=== PATIENT | female | born 1990 | race Caucasian/White ===

== ENCOUNTER → 2020-12-08 10:08 | Outpatient (BNVA) | payer MEDICAID, SELFPAY | PROVIDERS: Visit Provider Advanced Practice Midwife | DX: N92.6 Irregular menstruation, unspecified (principal); E66.01 Morbid (severe) obesity due to excess calories; Z68.42 Body mass index [BMI] 45.0-49.9, adult | CPT/HCPCS: 81025; 99202 ==

== ENCOUNTER 2020-12-08 13:09 | Outpatient (REF) | payer MEDICAID, SELFPAY ==
--- NOTE | 2020-12-08 | US_ITS ---
EXAMINATION: OBSTETRICAL ULTRASOUND, FIRST TRIMESTER HISTORY: 31-year-old with secondary amenorrhea LMP: Unknown COMPARISON: None TECHNIQUE: Real time transabdominal imaging with color and M-mode Doppler. FINDINGS: A single, live IUP CRL of 19.3 mm c/w 8.4wks is noted. Heart Rate: 169 beats per minute. Right ovary contains the an anechoic cyst measuring 3.6 x 2.8 x 3.3 cm. The ovary measured 5.3 x 4.2 4.2 cm. Left ovary 3.3 x 3.1 x 2.8 cm. GESTATIONAL AGE: 1. GA from LMP: N/A wks 2. GA from AUA: 8.4 wks ESTIMATED DATE OF DELIVERY: 1. FINA from LMP: N/A 2. FINA from AUA: 07/16/2021 US/US OB <= 14 weeks fetus IMPRESSION: 1. A single live IUP 2. CRL corresponds to 8.4 weeks of gestation giving her an FINA of 07/16/2021 3. Bilateral normal ovaries Thank you very much for this referral.
== END 2020-12-08 13:10 | disposition home or self-care (01) ==
LOC: HO.US 13:09
PROVIDERS: Visit Provider Advanced Practice Midwife
DX: O26.891 Other specified pregnancy related conditions, first trimester (principal); N92.6 Irregular menstruation, unspecified; R10.2 Pelvic and perineal pain; Z3A.08 8 weeks gestation of pregnancy
CPT/HCPCS: 76801

== ENCOUNTER → 2020-12-22 10:12 | Outpatient (BNVA) | payer MEDICAID, SELFPAY | PROVIDERS: Visit Provider Advanced Practice Midwife ==

== ENCOUNTER → 2021-01-04 10:45 | Outpatient (BNVA) | payer MEDICAID, SELFPAY | PROVIDERS: Visit Provider Advanced Practice Midwife | CPT/HCPCS: 99212 ==

== ENCOUNTER 2021-01-09 10:35 | Outpatient (REF) | payer MEDICAID, SELFPAY ==
[2021-01-10 09:20] LABS: BV Int Neg Control Negative (Negative); BV Int Pos Control Positive (Positive)
[2021-01-10 14:52] LABS: C. trachomatis RNA TMA NOT DETECTED (NOT DETECTED); N. gonorrhoeae RNA TMA NOT DETECTED (NOT DETECTED)
== END 2021-01-09 10:36 | disposition home or self-care (01) ==
LOC: HO.LAB 10:35
PROVIDERS: Visit Provider Advanced Practice Midwife
DX: O99.210 Obesity complicating pregnancy, unspecified trimester (principal); E66.01 Morbid (severe) obesity due to excess calories; Z20.2 Contact with and (suspected) exposure to infections with a predominantly sexual mode of transmission; Z68.42 Body mass index [BMI] 45.0-49.9, adult; Z12.4 Encounter for screening for malignant neoplasm of cervix
CPT/HCPCS: 36415; 81003; 87480; 87491; 87510; 87591; 87660; 88142; 99212

== ENCOUNTER 2021-01-12 12:35 | Outpatient (REF) | payer MEDICAID, SELFPAY ==
[2021-01-09 14:00] LABS: MANUAL DIFF FLAG NO
[2021-01-09 14:06] LABS: Basophils Percent Auto 0.5 % (0-2); Eosinophils Absolute Auto 0.2 X10*3/uL (0.0-0.4); Eosinophils Percent Auto 2.5 % (0-4); Hematocrit 32.3 % (37-47); Hemoglobin 10.7 g/dl (12.0-16.0); Imm Gran Abs Auto 0.02 X10*3/uL (0.00-0.03); Imm Gran Pct Auto 0.3 % (0.0-0.4); Lymphocytes Absolute Auto 1.4 X10*3/uL (1.2-4.9); Lymphocytes Percent Auto 18.2 % (20-40); Mean Corpuscular HGB Conc 33.1 g/dl (31.0-35.0); Mean Corpuscular Hemoglobin 26.4 pg (27.0-33.0); Mean Corpuscular Volume 79.8 fL (80-98); Monocytes Absolute Auto 0.3 X10*3/uL (0.1-1.2); Monocytes Percent Auto 4.4 % (2-11); Neutrophils Absolute Auto 5.7 X10*3/uL (2.0-8.3); Neutrophils Percent Auto 74.1 % (45-73); Platelet Count 224 X10*3/uL (160-400); Red Blood Count 4.05 X10*6/uL (4.20-5.50); Red Cell Distribution Width 15.1 % (11.0-16.0); White Blood Count 7.7 X10*3/uL (4.8-10.8)
[2021-01-09 14:32] LABS: Glucose 1 Hour 184 mg/dL
[2021-01-09 14:48] LABS: Amphetamine Screen Urine Not Detected (Not Detect); Barbiturates, Urine Not Detected (Not Detect); Benzodiazepines Screen Urine Not Detected (Not Detect); Cannabinoid Screen Urine Not Detected (Not Detect); Cocaine Screen Urine Not Detected (Not Detect); Opiate Screen Urine Not Detected (Not Detect); Phencyclidine Screen Urine Not Detected (Not Detect)
[2021-01-10 05:43] LABS: Rubella IgG Antibody <0.90 Index
[2021-01-10 07:42] LABS: Syphilis Screen Nonreactive (Nonreactive)
[2021-01-10 08:17] LABS: HIV AB/AG Nonreactive (Nonreactive); HIV Num 1 0.12 S/CO (0.00-0.99); ~HepC Num1 0.03 S/CO (0.00-0.79); ~Hepatitis C Antibody Nonreactive (Nonreactive)
[2021-01-10 08:43] LABS: HBsAGNum1 0.14 S/CO (0.00-0.99); Hepatitis B Surface Antigen Negative (Negative)
--- NOTE | ~2021-01-12 | US_ITS ---
EXAMINATION: OBSTETRICAL ULTRASOUND, FIRST TRIMESTER HISTORY: 30-year-old at 13.4 weeks of gestation High BMI NT screening COMPARISON: 12/08/2020 TECHNIQUE: Real time transabdominal imaging with color and M-mode Doppler. FINDINGS: A single, live IUP CRL of 79.3 mm c/w 14.0wks is noted. Heart Rate: 158 beats per minute. Normal yolk sac seen. NT was 1.4.mm. NB Present The embryo appears sonographically wnl for this GA. Right ovary is within normal limits. There is an anechoic cyst. Left ovary was not seen. There is a small subchorionic bleed measuring 3.6 x 0.9 x 2.4cm . GESTATIONAL AGE: 1. Established GA: 13.4 wks 2. GA from A: 14.0 wks ESTIMATED DATE OF DELIVERY: 1. Established FINA: 07/16/2021 2. FINA from [facility]: 07/13/2021 US/US OB 1T nuc measure IMPRESSION: 1. A single live IUP 2. Size equals dates 3. NT of 1.4 mm 4. Small subchorionic hematoma MFM Consultation: I reviewed the ultrasound findings along with significance of NT measurement. The NT of less than 3mm is generally reassuring. However, the sensitivity for T21 detection is only 60%. I reviewed the availability of serum aneuploidy screening which includes cell-free DNA and placental protein based tests. I discussed the sensitivity, false-positive rate, and other limitations associated with each test. I also reviewed the availability of invasive diagnostic tests that are associated small but definite risk of miscarriage. We also reviewed the differences between screening tests and diagnostic tests. After our discussion, she opted for the First trimester screening that is based on cell-free DNA or non-invasive testing (NIPT). The result will be faxed to your office in approximately 7 days. A follow up at 18 weeks for survey has been scheduled. Thank you very much for this referral. Majority of this visit was spent reviewing her care and counselling her in face to face time: Time spent 30 min.
[2021-01-16 04:57] LABS: C. trachomatis RNA TMA NOT DETECTED (NOT DETECTED); N. gonorrhoeae RNA TMA NOT DETECTED (NOT DETECTED)
== END 2021-01-12 12:36 | disposition home or self-care (01) ==
LOC: HO.US 12:35
PROVIDERS: Visit Provider Advanced Practice Midwife
DX: O99.212 Obesity complicating pregnancy, second trimester (principal); E66.01 Morbid (severe) obesity due to excess calories; Z68.42 Body mass index [BMI] 45.0-49.9, adult; Z3A.18 18 weeks gestation of pregnancy; Z20.2 Contact with and (suspected) exposure to infections with a predominantly sexual mode of transmission
CPT/HCPCS: 36415; 76813; 80307; 82951; 85025; 86762; 86780; 86787; 86803; 86850; 86900; 86901; 87086; 87147; 87340; 87389; 87491; 87591

== ENCOUNTER → 2021-02-06 10:16 | Outpatient (BNVA) | payer MEDICAID, SELFPAY | PROVIDERS: Visit Provider Advanced Practice Midwife | DX: Z34.90 Encounter for supervision of normal pregnancy, unspecified, unspecified trimester (principal); E66.01 Morbid (severe) obesity due to excess calories; Z68.42 Body mass index [BMI] 45.0-49.9, adult; R73.09 Other abnormal glucose; Z36.3 Encounter for antenatal screening for malformations | CPT/HCPCS: 81003; 99212 ==

== ENCOUNTER 2021-02-06 11:32 | Outpatient (REF) | payer MEDICAID, SELFPAY ==
--- NOTE | ~2021-02-06 | US_ITS ---
EXAMINATION: US OBSTETRICAL FOLLOW UP CLINICAL INFORMATION: Z34.90 - Encounter for supervision of normal , unspecified, unspecified trimester. No heart tones in office. FINA on initial ultrasound is 07/16/2021. Current gestational age approximately 17 weeks 1 day. COMPARISON: Obstetrical ultrasound 12/08/2020, 01/12/2021. TECHNIQUE: Real time transabdominal imaging with color and M-mode Doppler. POSITION: Breech. PLACENTA: Anterior. AMNIOTIC FLUID: Subjectively normal. HEART RATE: 150 beats per minute. MOVEMENTS: Good movements noted at real-time imaging. US/US OB limited IMPRESSION: 1. Single intrauterine gestation in breech position with anterior placenta. 2. heart rate 150 bpm. Good motion at realtime scanning. 3. Amniotic fluid subjectively normal.
== END 2021-02-06 11:33 | disposition home or self-care (01) ==
LOC: HO.US 11:32
PROVIDERS: Visit Provider Advanced Practice Midwife
DX: Z34.90 Encounter for supervision of normal pregnancy, unspecified, unspecified trimester (principal)
CPT/HCPCS: 76815

== ENCOUNTER 2021-02-08 08:45 | Outpatient (REF) | payer MEDICAID, SELFPAY ==
[2021-02-08 10:45] LABS: Glucose Fasting 99 mg/dL (60-99)
[2021-02-08 11:14] LABS: Glucose 1 Hour 147 mg/dL
[2021-02-08 12:37] LABS: Glucose 2 Hour 173 mg/dL
[2021-02-08 13:57] LABS: Glucose 3 Hour 144 mg/dL
[2021-02-09 10:04] LABS: CT PCR NOT DETECTED (Not Detect.); NG PCR NOT DETECTED (Not Detect.)
== END 2021-02-08 08:46 | disposition home or self-care (01) ==
LOC: HO.LAB 08:45
PROVIDERS: Visit Provider Advanced Practice Midwife
DX: O99.210 Obesity complicating pregnancy, unspecified trimester (principal); R73.09 Other abnormal glucose; Z68.42 Body mass index [BMI] 45.0-49.9, adult; Z20.2 Contact with and (suspected) exposure to infections with a predominantly sexual mode of transmission
CPT/HCPCS: 82951; 87491; 87591

== ENCOUNTER 2021-03-02 12:34 | Outpatient (REF) | payer MEDICAID, SELFPAY ==
--- NOTE | ~2021-03-02 | US_ITS ---
EXAMINATION: US OBSTETRICAL CLINICAL INFORMATION: 30-year-old at 20.4 weeks of gestation Screening for anomaly High BMI COMPARISON: 02/06/2021 TECHNIQUE: Real-time transabdominal ultrasound was performed using C1-5 megahertz transducer. FINDINGS: A single, active, fetus is seen in transverse presentation. The placenta is anterior without previa, and the amniotic fluid volume is wnl. MEASUREMENTS: 1. Biparietal Diameter: 4.9 cm; 20.6 wks 2. Occipital Frontal Diameter: 6.4 cm 3. Head Circumference: 18.4 cm; 20.6 wks 4. Abdominal Circumference: 16.5 cm; 21.4 wks 5. Femur Length: 3.4 cm; 20.4 wks 6. Humerus Length: 3.1 cm; 20.1 wks 7. Tibia Length: 2.8 cm; 20.1 wks 8. Ulna Length: 3.3 cm; 22.6 wks 9. Lateral ventricle: 0.8 cm 10. Cerebellum: 1.9 cm; 19.3 wks 11. Cisterna Magna: 0.6 cm 12. Nuchal Fold: 4.2 mm 13. Heart Rate: 138 beats per minute Rt ovary: normal Lt ovary: Unable to visualize Cervical length 3.2 cm on T/A. GESTATIONAL AGE: 1. Established GA: 20.4 wks 2. GA from [facility]: 21.0 wks ESTIMATED DATE OF DELIVERY: 1. Established FINA: 07/16/2021 2. FINA from [facility]: 07/13/2021 ANATOMY: The visualized anatomy includes but not limited to: 1. Cranium: Normal 2. Intracranial anatomy: cavum septum pellucidi, lateral ventricles, choroid plexus, cerebellum, posterior fossa, third and fourth ventricles. 3. face: orbits, lip/palate, profile, nasal bone 4. Heart: four-chamber view of the heart, ventricular septum, foramen ovale, pulmonary vein, left and right outflow tracts, three-vessel view, 3 vessel trachea view, aortic and ductal arches, situs.. 5. Diaphragm: Normal 6. Abdominal wall: Normal 7. Cord Insertion: Normal 8. Spine: Cervical, thoracic, lumbar, sacral. 9. Stomach: Normal size and shape 10. Right Kidney: Normal 11. Left Kidney: Normal 12. 3 vessel cord: Normal 13. Upper extremity: Open hands, fifth digit. 14. Lower extremity: Tibia, fibula, bilateral feet. 15. Bladder: Normal 16. Genitalia: Male, patient aware US/US OB /maternal detail IMPRESSION: 1. Single, living, intrauterine with appropriate biometry. 2. Normal survey DISCUSSION: I reviewed today's ultrasound findings. We discussed the limitations of ultrasound in diagnosing aneuploidy and other congenital abnormalities. I reviewed the differences between screening test and diagnostic test. Amniocentesis was discussed and declined. She was informed that the baseline incidence of congenital abnormalities is approximately 3-5%. Not all these conditions are diagnosable in utero. RECOMMENDATIONS: Follow-up when necessary. Thank you for allowing me to participate in her care. Total time 20 minutes. The time spent was devoted to counseling the patient about the disease and diagnosis, coordinating care including reviewing her records, pertinent lab data and studies, as well as discussing diagnostic evaluation and workup, plan therapeutic interventions and future disposition of care. This includes any additional research needed to obtain further information in formulating the plan of care of this patient. This note was generated with a voice recognition program. Please excuse any errors which may have been overlooked during my review of this note. Sometimes these errors may affect the content or meaning of a given sentence.
== END 2021-03-02 12:35 | disposition home or self-care (01) ==
LOC: HO.US 12:34
PROVIDERS: Visit Provider Advanced Practice Midwife
DX: O99.212 Obesity complicating pregnancy, second trimester (principal); O35.9XX0 Maternal care for (suspected) fetal abnormality and damage, unspecified, not applicable or unspecified; O99.810 Abnormal glucose complicating pregnancy; E66.01 Morbid (severe) obesity due to excess calories; Z3A.20 20 weeks gestation of pregnancy
CPT/HCPCS: 76811; 99211

== ENCOUNTER 2021-03-13 13:58 | Outpatient (REF) | payer MEDICAID, SELFPAY | END 2021-03-13 13:59 | disposition home or self-care (01) | LOC: HO.LAB 13:58 | PROVIDERS: Visit Provider Obstetrics & Gynecology | DX: O99.012 Anemia complicating pregnancy, second trimester (principal); O99.810 Abnormal glucose complicating pregnancy; Z3A.22 22 weeks gestation of pregnancy | CPT/HCPCS: 81003; 99212 ==

== ENCOUNTER → 2021-03-15 11:18 | Outpatient (BNVA) | payer MEDICAID, SELFPAY | PROVIDERS: Visit Provider Obstetrics & Gynecology | DX: O24.419 Gestational diabetes mellitus in pregnancy, unspecified control (principal); Z3A.22 22 weeks gestation of pregnancy | CPT/HCPCS: 99212 ==

== ENCOUNTER → 2021-03-19 14:42 | Outpatient (BNVA) | payer MEDICAID, SELFPAY | PROVIDERS: Visit Provider Obstetrics & Gynecology | DX: Z13.89 Encounter for screening for other disorder (principal) | CPT/HCPCS: 99212 ==

== ENCOUNTER → 2021-03-22 08:25 | Outpatient (BNVA) | payer MEDICAID, SELFPAY | PROVIDERS: Visit Provider Advanced Practice Midwife | DX: Z34.92 Encounter for supervision of normal pregnancy, unspecified, second trimester (principal); Z3A.23 23 weeks gestation of pregnancy | CPT/HCPCS: 81003; 99212 ==

== ENCOUNTER → 2023-11-28 09:41 | Outpatient (BNVA) | payer SELFPAY | DX: Z11.1 Encounter for screening for respiratory tuberculosis (principal) ==